=== PATIENT | male | born 1995 | race Caucasian/White ===

== ENCOUNTER 2021-06-30 00:44 | Emergency (ER) | payer MEDICAID, SELFPAY ==
--- NOTE | ~2021-06-30 | XR_ITS ---
EXAMINATION: XR WRIST, LEFT CLINICAL INFORMATION: Pain and swelling COMPARISON: None TECHNIQUE: PA, lateral, and oblique views of the left wrist. FINDINGS: There is no fracture or dislocation. The carpal rows are well aligned. Joint spaces are maintained. There is dorsal soft tissue swelling. XR/XR wrist LT min 3V IMPRESSION: Dorsal soft tissue swelling without acute osseous abnormality.
--- NOTE | ~2021-06-30 | XR_ITS ---
EXAMINATION: XR HAND, LEFT CLINICAL INFORMATION: Left hand injury. COMPARISON: None TECHNIQUE: PA, lateral, and oblique views of the left hand. FINDINGS: No fracture or dislocation. Alignment is anatomic. Joint spaces are maintained. Mild dorsal soft tissue swelling. XR/XR hand LT 2V IMPRESSION: Soft tissue swelling without acute osseous abnormality.
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
[2021-06-30 00:53] VITALS: BP 131/76; BP 138/98; PULSE 114; PULSE 125; RESP 16; TEMP 36.2; O2SAT 97; O2SAT 98; BMI 21.6
[2021-06-30 04:51] VITALS: BP 119/87; PULSE 86; RESP 16; TEMP 36.8; O2SAT 97
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
== END 2021-06-30 07:20 | disposition home or self-care (01) ==
PROVIDERS: Emergency Provider Emergency Medicine
DX: S60.222A Contusion of left hand, initial encounter (principal); M79.642 Pain in left hand; M25.532 Pain in left wrist; Y04.8XXA Assault by other bodily force, initial encounter; Y93.9 Activity, unspecified; Y92.9 Unspecified place or not applicable; Y99.9 Unspecified external cause status
CPT/HCPCS: 73060; 73110; 73120; 99282; 99283